=== PATIENT | female | born 2000 | race African-American/Black ===

== ENCOUNTER 2018-01-15 13:13 | Emergency (ER) | payer BC ==
[2018-01-15] MEDS: ALBUTEROL SULFATE 2.5 MG/3 ML NEBU. NEB (14:05)
[2018-01-16 08:34] LABS: URINE HCG POC HCG NEGATIVE (Negative)
== END 2018-01-15 14:43 | disposition home or self-care (01) ==
LOC: ER 13:13
DX: R05 Cough (principal)
CPT/HCPCS: 81025; 94640; 99283; J7613